=== PATIENT | female | born 1940 | race Caucasian/White ===

== ENCOUNTER → 2019-02-06 | Outpatient (CLI) | payer OTHER | LOC: FCPNEURO 21:00 | PROVIDERS: ATTEND Student in an Organized Health Care Education/Training Program | DX: G47.33 Obstructive sleep apnea (adult) (pediatric) (principal) ==

== ENCOUNTER → 2019-02-13 | Outpatient (CLI) | payer OTHER | LOC: FLAB 13:25 | PROVIDERS: ATTEND Internal Medicine | DX: M51.35 Other intervertebral disc degeneration, thoracolumbar region (principal); M41.86 Other forms of scoliosis, lumbar region ==

== ENCOUNTER → 2019-02-15 | Outpatient (CLI) | payer OTHER | LOC: FIMAGING 08:52 | PROVIDERS: ATTEND Internal Medicine | DX: R10.9 Unspecified abdominal pain (principal); K76.0 Fatty (change of) liver, not elsewhere classified | CPT/HCPCS: 76770-PO ==